=== PATIENT | female | born 1940 | race Caucasian/White ===

== ENCOUNTER → 2017-07-04 15:33 | Outpatient (CLI) | payer MEDICARE, OTHER ==
[2015-06-06 10:02] VITALS: BMI 40.8
[~2017-07-04 15:33] MED LIST: BENICAR20 MG PO; CEFTIN250 MG PO; FUROSEMIDE20 MG PO; GLUCOTROL 5 MG T5 MG PO; MULTAQ400 MG PO; PRAVACHOL20 MG PO; RYTHMOL150 MG PO; XARELTO20 MG PO
== END | disposition home or self-care (01) ==
LOC: D.CT 15:33
DX: R10.9 Unspecified abdominal pain (principal)